=== PATIENT | female | born 1995 | race African-American/Black ===

== ENCOUNTER 2019-05-01 20:50 | Emergency (ER) | payer MEDICAID ==
[~2019-05-01] VITALS: Ht 165.1 cm; Wt 117.0 kg
[2019-05-01 21:00] VITALS: BP 137/74
--- NOTE | 2019-05-01 21:10 | NUR ---
AMBULATED TO BED
--- NOTE | 2019-05-01 21:40 | NUR ---
C/O BODY PAIN, INCLUDING BL SHOULDER, BL LEGS, BL HIPS; X2 DAYS. PAIN 10/10. NO OBVIOUS DEFORMITIES OR BRUISING. DENIES INJURY. VSS. [id number]. BED IS DOWN, LOCKED, BED RAIL X 1, ERMD TO SEE PT. HX SICKLE-CELL DISEASE, ACUTE CHEST SYNDROME, DVT/PE RX DILAUDID (RAN OUT), HYDROXYUREA, FOLIC ACID, IRON, BENADRYL
--- NOTE | 2019-05-01 21:55 | NUR ---
PT CONTINUES TO ASK WHEN THE DR WILL COME TO SEE HER. PT INFORMED THAT HE IS SEEING ANOTHER PT AND WILL BE IN SOON POSSIBLE.
[2019-05-01 22:00] VITALS: BP 137/74
--- NOTE | 2019-05-01 22:00 | NUR ---
pt lwbs, ermd made aware
--- NOTE | 2019-05-01 22:00 | NUR ---
PATIENT LEFT WITHOUT BEING SEEN BY DR. ly . NO FURTHER CARE PROVIDED FOR PATIENT.
== END 2019-05-01 22:00 | disposition left against medical advice (07) ==
LOC: MED 20:50
DX: M79.18 Myalgia, other site (principal); Z53.21 Procedure and treatment not carried out due to patient leaving prior to being seen by health care provider